=== PATIENT | male | born 1975 | race Caucasian/White ===

== ENCOUNTER 2022-07-28 09:06 | Outpatient (REF) | payer BC, SELFPAY ==
[2022-07-28 17:52] LABS: Urine Cytology See Pathology rpt
== END 2022-07-28 09:07 | disposition home or self-care (01) ==
LOC: HO.LAB 09:06
PROVIDERS: PCP Internal Medicine; Visit Provider Nurse Practitioner Family
DX: N40.1 Benign prostatic hyperplasia with lower urinary tract symptoms (principal); R35.0 Frequency of micturition; R39.15 Urgency of urination; R31.29 Other microscopic hematuria; Z79.899 Other long term (current) drug therapy
CPT/HCPCS: 51798; 88112

== ENCOUNTER 2022-08-29 07:47 | Outpatient (REF) | payer BC, SELFPAY ==
--- NOTE | ~2022-08-29 | CT_ITS ---
EXAMINATION: CT ABDOMEN AND PELVIS WITHOUT AND WITH CONTRAST CLINICAL INFORMATION: Microscopic hematuria. COMPARISON: None. TECHNIQUE: Noncontrast CT of the abdomen and pelvis is performed followed by split bolus contrast-enhanced images using 85 mL Omnipaque 350 contrast.?Postcontrast imaging is performed during the combined nephrogram and excretion phase. Sagittal and coronal reformatted images were obtained on the technologist's workstation for both the precontrast and postcontrast phases. This CT examination was performed using dose optimization techniques as appropriate, variously including the following: *Automated exposure control *Adjustment of mA and/or kV according to patient size (this includes techniques or standardized protocols for targeted exams where dose is matched to indication/reason for exam; i.e. extremities or head) *Use of iterative reconstruction technique DLP: 1458 mGy-cm FINDINGS: LUNG BASES: There are atelectatic changes in the lingula. LIVER, GALLBLADDER, AND BILIARY TREE: The liver is normal in size, shape, and attenuation. No focal hepatic lesion or biliary ductal dilatation is present. The gallbladder is unremarkable with no evidence of radiopaque gallstones, gallbladder wall thickening, or obvious pericholecystic inflammatory changes. PANCREAS: Unremarkable. SPLEEN: Unremarkable. ADRENAL GLANDS: Unremarkable. KIDNEYS AND URETERS: On precontrast CT, there is no radiopaque renal calculi. Postcontrast, there are symmetrical bilateral kidney nephrograms without any enhancing mass, cyst or hydronephrosis. There is good opacification of bilateral kidney pelvises and proximal ureter without any dilation. The left mid and the distal ureter are not well visualized, however, it is not dilated. The left kidney measures 12.5 cm and right kidney measures 12.7 cm. BLADDER: Unremarkable. GASTROINTESTINAL TRACT: There is scattered stool and gas seen throughout the colon without significant distention. The small bowel loops are normal caliber. The appendix is not visualized with certainty. ABDOMINAL WALL: There is a small umbilical hernia containing fat. LYMPH NODES: There are scattered retroperitoneal small lymph nodes, largest measuring 1 cm axial image 38/8. VASCULAR: Unremarkable. PELVIC VISCERA: No free air or free fluid seen. OSSEUS STRUCTURES: There are degenerative disc changes at the L5-S1 disc level. The rest of the disc levels are unremarkable. No aggressive lytic or sclerotic process seen. CT/CT urogram IMPRESSION: 1. No radiopaque urolith or hydroureteronephrosis. No enhancing renal mass or cyst. 2. Mild constipation. 3. Small left umbilical hernia containing fat.
[2022-08-29] MEDS: iohexoL 350 MG/ML 100 ML INFUS..BTL 85 ML IV (08:23)
== END 2022-08-29 07:48 | disposition home or self-care (01) ==
LOC: HO.CT 07:47
PROVIDERS: Visit Provider Nurse Practitioner Family
DX: R31.29 Other microscopic hematuria (principal); R35.0 Frequency of micturition; R39.15 Urgency of urination
CPT/HCPCS: 74178; Q9967

== ENCOUNTER → 2022-09-06 14:50 | Outpatient (BNVA) | payer BC, SELFPAY | PROVIDERS: PCP Internal Medicine; Visit Provider Urology | DX: R31.29 Other microscopic hematuria (principal); R35.0 Frequency of micturition | CPT/HCPCS: 52000 ==

== ENCOUNTER 2024-06-06 22:11 | Emergency (ER) | payer BC, SELFPAY ==
--- NOTE | ~2024-06-06 | XR_ITS ---
EXAMINATION: XR SOFT TISSUE NECK CLINICAL INDICATION: fb sensation COMPARISON: None available. TECHNIQUE: 2 views of the soft tissue neck were obtained. FINDINGS: Soft tissue films of the neck demonstrate a normal larynx, pharynx and upper trachea. No soft tissue swelling or opaque foreign body is demonstrated. XR/XR soft tissue neck IMPRESSION: No significant abnormality seen. No radiopaque foreign body identified. Electronically signed by: Aleksandr Caldera MD 06/07/2024 02:20 AM VANDANA
[2024-06-06 22:11] VITALS: BMI 34.1
[2024-06-06 22:28] VITALS: BP 128/76; PULSE 89; RESP 17; O2SAT 96
--- NOTE | 2024-06-06 22:47 | ED_ITS ---
HPI - General Adult General Chief complaint: General Medical Stated complaint: ?choking Time Seen by Provider: 06/06/24 22:32 Source: patient Mode of arrival: ambulatory Limitations: no limitations History of Present Illness ED Provider: HPI narrative: Patient apparently had right lower molar pulled out and had a biopsy of the left lateral aspect of the tongue earlier today just prior to arrival patient felt that he swallowed some stitch and choking on it able to take liquids and coughing frequently no prior history of choking no wheezing Related Data Home Medications ?Medication ?Instructions ?Recorded ?Confirmed albuterol sulfate 90 mcg/actuation 0 mcg inhalation 07/27/22 09/06/22 aerosol inhaler buprenorphine 8 mg-naloxone 2 mg 10 mg sublingual BID 07/27/22 09/06/22 sublingual film montelukast 10 mg tablet 10 mg PO DAILY 07/27/22 09/06/22 rosuvastatin 20 mg tablet 20 mg PO DAILY 07/27/22 09/06/22 Previous Rx's ?Medication ?Instructions ?Recorded terazosin 5 mg capsule 5 mg PO BEDTIME 90 days #90 caps 07/06/23 Allergies Allergy/AdvReac Type Severity Reaction Status Date / Time bee pollen [BEE STINGS] Allergy Severe ANAPHYLAXIS Verified 06/06/24 22:17 Review of Systems Review of Systems: Yes all other systems are reviewed and are negative PMFSH Past Medical History Medical History Pure hypercholesterolemia Uncomplicated opioid dependence Furuncle of groin Urinary urgency Social History Social History Advance Directives: No Advance Directives Information Provided: Yes Do you have a plan to hurt others: No Plan Physical Exam ED Vital Signs: Vital Signs - 24 hr 06/06/24 22:28 06/06/24 23:29 06/07/24 00:00 Temperature 98.1 F Pulse Rate 89 79 64 Respiratory Rate 17 18 16 Blood Pressure 128/76 106/60 Pulse Oximetry 96 96 Oxygen Delivery Method Room Air Room Air BMI result Body Mass Index 34.1 Appearance: Alert. Oriented X3. No acute distress. Anxious Eyes: PERRLA, No Nystagmus ENT: Pharynx normal. Oral Mucosa moist no foreign body seen no stridor right lower molar stitches intact Neck: Normal inspection. Neck supple. CVS: Normal heart rate and rhythm. Pulses normal. Respiratory: No respiratory distress. Equal air entry bilateral, no wheezing/rales/rhonchi Abdomen: Soft and nontender. Bowel sounds are present, no mass palpable, no CVA tenderness Skin: Skin warm and dry. Normal skin color. Normal skin turgor. Extremities: No lower extremity edema. No calf tenderness Neuro: Oriented X 3. Medications Administered Discontinued Medications Generic Name Dose Route Start Last Admin Trade Name Olive PRN Reason Stop Dose Admin Albuterol Sulfate 2.5 mg/ 0 mg 06/06/24 23:13 06/06/24 23:29 Albuterol/Ipratropium 3 ml INHALE 06/06/24 23:14 3.5 dose ONCE ONE Administration Lidocaine HCl 1 appl 06/06/24 22:35 06/06/24 22:49 Lidocaine Hcl 4 % [id number] 4 Ml TOPICAL 06/06/24 22:36 1 appl ONCE ONE Administration Lidocaine HCl 15 ml 06/07/24 00:29 06/07/24 00:42 Lidocaine Hcl Viscous 2 % 15 Ml Solution MUCOUS MEM 06/07/24 00:30 15 ml ONCE ONE Administration Medical Decision Making Medical Decision Making [facility] Narrative: Patient with foreign body sensation no foreign body was seen the throat x-ray negative patient is able to drink and swallow fluids and Jell-O in the ER looks comfortable no stridor discharge patient home Independent Interpretation I performed an independent interpretation of an: Plain X-Ray Radiology Impression Discussion of test interpretation with radiology: I have reviewed the radiologist's reading. Discharge Plan Discharge Clinical Impression: Foreign body sensation in throat Patient Disposition: Home, Self-Care Instructions: Foreign Body Ingestion (ED) Additional Instructions: Drink plenty of fluids No foreign body seen Prescriptions: No Action terazosin 5 mg capsule 5 mg PO BEDTIME 90 Days Qty: 90 1RF albuterol sulfate 90 mcg/actuation HFA aerosol inhaler 0 mcg inhalation rosuvastatin 20 mg tablet 20 mg PO DAILY buprenorphine-naloxone 8-2 mg film 10 mg sublingual BID montelukast 10 mg tablet 10 mg PO DAILY Print Language: Mosotho
[2024-06-06] MEDS: Lidocaine HCl 4 % Laryng-O-Jet 4 ML 1 APPL TOPICAL (22:49)
--- NOTE | 2024-06-06 23:12 | PC.NURSE ---
pt feels like he cant breath or catch his breath after the lidocaine, requesting nebulizer treatment. 97% RA
[2024-06-06 23:29] VITALS: PULSE 79; RESP 18; O2SAT 97
[2024-06-06] MEDS: Albuterol Sulfate 2.5 MG, Albuterol/Iprat 2.5/0.5MG 3 ML 3 ML INHALE (23:29)
[2024-06-07] VITALS: BP 106/60; PULSE 64; RESP 16; TEMP 36.7; O2SAT 96
[2024-06-07] MEDS: Lidocaine HCl Viscous 2 % 15 ML SOLUTION MUCOUS MEM (00:42)
== END 2024-06-07 01:21 | disposition home or self-care (01) ==
PROVIDERS: Emergency Provider Internal Medicine
DX: R09.A2 Foreign body sensation, throat (principal); R06.02 Shortness of breath; E78.00 Pure hypercholesterolemia, unspecified; Z79.02 Long term (current) use of antithrombotics/antiplatelets; Z79.899 Other long term (current) drug therapy
CPT/HCPCS: 70360; 94640; 99284